=== PATIENT | male | born 2000 | race Caucasian/White ===

== ENCOUNTER 2021-03-26 14:54 | Emergency (ER) | payer OTHER, SELFPAY ==
--- NOTE | ~2021-03-26 | US_ITS ---
EXAMINATION: US scrotum doppler DATE: 03/26/2021 16:08 INDICATION: Bilateral testicular pain. TECHNIQUE: Grayscale and Doppler ultrasound images of the testes were obtained. COMPARISON: None. FINDINGS: The right testis measures 5.0 x 2.0 x 3.5 cm. The left testis measures 4.6 x 2.0 x 3.0 cm. There is increased vascular flow in the left testis. The right epididymis demonstrates a 4 mm cyst. T he left epididymis demonstrates increased vascular flow. There is no varicocele or hydrocele. IMPRESSION: 1. Hyperemic left epididymis and left testis, consistent with epididymoorchitis. Reviewed, dictated and finalized at location A. IMPRESSION: 1. Hyperemic left epididymis and left testis, consistent with epididymoorchiti s.
[2021-03-26 15:36] VITALS: BP 158/68; PULSE 75; RESP 18; TEMP 37.1; O2SAT 100
[2021-03-26 18:01] VITALS: BP 118/64; PULSE 62; RESP 18; O2SAT 100
--- NOTE | 2021-03-26 18:56 | ED.GENADULT ---
HPI - General Adult General Chief complaint: Urogenital-Male Stated complaint: testicle pain Time Seen by Provider: 03/26/21 18:04 Source: patient and RN notes reviewed Mode of arrival: ambulatory Limitations: no limitations History of Present Illness HPI narrative: Patient is a 20-year-old male who presents to emergency department for evaluation of left testicle pain that has been present for over a month have [place] that he continues to have the discomfort patient localizes the pain to the left testicle notes that the pain is minimal at this time patient denying any fever vomiting dysuria or concern for STD. Related Data Allergies Allergy/AdvReac Type Severity Reaction Status Date / Time No Known Allergies Allergy Verified 03/26/21 15:38 Review of Systems Review of Systems: All systems reviewed & are unremarkable except as noted in HPI and below PMFSH Social History Social History (Updated 03/26/21 @ 18:57 by Isak Spring PA-C) Smoking status: Never smoker Exam Narrative: GENERAL: Well-appearing, well-nourished, and in no acute distress. HEAD: Normocephalic, atraumatic. EYES: PERRLA and EOMI. ENT: Nares clear, no rhinorrhea or epistaxis. Mucous membranes moist. CHEST: Clear to auscultation. No respiratory distress. No wheezes rales or rhonchi HEART: Regular rate and rhythm. No murmur heard. Normal peripheral pulses. ABDOMEN: Soft, nontender, nondistended MALE GENITOURINARY: Tenderness of the left testicle no deformity swelling or other abnormality noted tenderness appears to be at the level of the epididymis EXTREMITIES: Normal range of motion. No edema. SKIN: Warm, dry, no rash. NEURO: No focal deficits. Alert and oriented x3. Cranial nerves II through XII grossly intact PSYCH: Normal mood and affect. Course Course Emergency Course: Patient in the room in no distress aware of case findings treatment plan and diagnosis agreeing to follow-up as instructed with urology and primary care Vital Signs Vital signs: Vital Signs Temperature 98.7 F 03/26/21 15:36 Pulse Rate 75 03/26/21 15:36 Respiratory Rate 18 03/26/21 15:36 Blood Pressure 158/68 H 03/26/21 15:36 Pulse Oximetry 100 03/26/21 15:36 Temperature 98.7 F 03/26/21 15:36 Pulse Rate 62 03/26/21 18:01 Respiratory Rate 18 03/26/21 18:01 Blood Pressure 118/64 03/26/21 18:01 Pulse Oximetry 100 03/26/21 18:01 Medical Decision Making MDM Narrative Medical decision making narrative: Patient in the room no distress aware of case findings treatment plan and diagnosis agreeing to follow-up as instructed will have urine sent for GC chlamydia and infection and will be treated empirically and given follow with urology Vital Signs Vital Signs: Vital Signs Temperature 98.7 F 03/26/21 15:36 Pulse Rate 75 03/26/21 15:36 Respiratory Rate 18 03/26/21 15:36 Blood Pressure 158/68 H 03/26/21 15:36 Pulse Oximetry 100 03/26/21 15:36 Temperature 98.7 F 03/26/21 15:36 Pulse Rate 62 03/26/21 18:01 Respiratory Rate 18 03/26/21 18:01 Blood Pressure 118/64 03/26/21 18:01 Pulse Oximetry 100 03/26/21 18:01 Imaging Data Radiologist's impression: ITS Impressions Scrotum Ultrasound 03/26/21 16:16 IMPRESSION: 1. Hyperemic left epididymis and left testis, consistent with epididymoorchitis. Discharge Plan Discharge Clinical Impression: Epididymitis Patient Disposition: Home, Self-Care Condition: Stable Instructions: Antibiotic Form, Epididymo-Orchitis (ED) Additional Instructions: Follow up with primary care and urology in the next 2-3 days for re-evaluation. Antibiotics as prescribed. Increase fluid intake. Tylenol and Motrin for pain and or fever if needed. Follow up with your doctor for further care. Call your doctor or return to the emergency department if needed for worsening symptoms or problems, especially if y
[2021-03-26 19:32] LABS: Add Urine Microscopic? NO; Appearance Urine Clear (Clear); Bilirubin Urine Negative (Negative); Blood Urine Negative (Negative); Color Urine Yellow (Yellow); Glucose Urine UA Negative (Negative); Ketones Urine Negative (Negative); Leukocyte Esterase Ur Negative LEU/UL (Negative); Nitrate Urine Negative (Negative); Protein Urine Negative (Negative); Specific Grav Ur 1.019 (1.001-1.035); Urobilinogen Urine Negative mg/dL (<2.0)
== END 2021-03-26 19:27 | disposition home or self-care (01) ==
PROVIDERS: Emergency Medicine Emergency Medical Services; Emergency Provider Emergency Medicine
DX: N45.1 Epididymitis (principal)
CPT/HCPCS: 76870; 81003; 87491; 87591; 93976; 99284